=== PATIENT | male | born 1995 | race Caucasian/White ===

== ENCOUNTER → 2018-05-18 | Outpatient (CLI) | payer BC ==
[2018-05-18 15:41] LABS: EOS % 0.6 % (0.0-4.0); HEMATOCRIT 42.5 % (42.0-52.0); HEMOGLOBIN 14.6 g/dL (13.5-18.0); LYMPH# 1.9 (1.50-4.00); MEAN CELL VOLUME 94 fl (78-100); MEAN CORPUSCULAR HEMOGLOBIN 32 pg (27-31); MEAN CORPUSCULAR HGB CONC 34 g/dL (33-37); MEAN PLATELET VOLUME 10.9 fl (7.4-10.4); MONO # 0.5 (0.20-0.80); NEU # 2.8 (1.40-6.50); PLATELET COUNT 211 K/mm3 (130-400); RED BLOOD COUNT 4.53 M/mm3 (4.20-5.60); RED CELL DISTRIBUTION WIDTH 12.6 % (11.5-14.5); WHITE BLOOD COUNT 5.2 K/mm3 (4.8-10.8)
[2018-05-18 16:08] LABS: ALBUMIN 4.9 g/dL (3.5-5.0); POTASSIUM 4.3 mmol/L (3.6-5.0); TOTAL BILIRUBIN 0.8 mg/dL (0.2-1.3); TOTAL PROTEIN 7.9 g/dL (6.3-8.2)
== END ==
LOC: LAB 14:22
PROVIDERS: Nurse Practitioner
DX: R53.83 Other fatigue (principal); R50.9 Fever, unspecified

== ENCOUNTER → 2018-06-15 | Outpatient (CLI) | payer BC ==
[2018-06-15 09:59] LABS: HEMATOCRIT 42.6 % (42.0-52.0); HEMOGLOBIN 14.7 g/dL (13.5-18.0); MEAN CELL VOLUME 95 fl (78-100); MEAN CORPUSCULAR HEMOGLOBIN 33 pg (27-31); MEAN CORPUSCULAR HGB CONC 35 g/dL (33-37); MEAN PLATELET VOLUME 10.3 fl (7.4-10.4); PLATELET COUNT 186 K/mm3 (130-400); RED CELL DISTRIBUTION WIDTH 12.7 % (11.5-14.5); WHITE BLOOD COUNT 4.1 K/mm3 (4.8-10.8)
[2018-06-15 11:23] LABS: ERYTHROCYTE SEDIMENTATION RATE 2 mm/hr (0-15); LYMPHOCYTE 45 % (20-51); MONOCYTE 7 % (3-10); NEUTROPHILS 43 % (42-75)
== END ==
LOC: LAB 09:48
PROVIDERS: Family Medicine
DX: R53.83 Other fatigue (principal)